=== PATIENT | male | born 1955 | race Caucasian/White ===

== ENCOUNTER → 2023-01-04 08:42 | Outpatient (BNVA) | payer OTHER, SELFPAY | PROVIDERS: Visit Provider Family Medicine | DX: E78.5 Hyperlipidemia, unspecified (principal); Z12.5 Encounter for screening for malignant neoplasm of prostate; R68.82 Decreased libido; I10 Essential (primary) hypertension | CPT/HCPCS: 80053; 80061; 82043; 84403; 85025; G0103 ==

== ENCOUNTER 2023-02-06 06:39 | Day surgery (SDC) | payer MEDICARE, SELFPAY ==
--- NOTE | 2023-02-06 06:43 | W.PM.OPSFHP ---
Same Day Surgery H&P Indication for Procedure/HPI DATE OF PROCEDURE: February 06, 2023 CHIEF COMPLAINT/INDICATIONFOR SURGICAL PROCEDURE: need for screening colonoscopy PREOP DIAGNOSIS: need for screening colonoscopy PLANNED PROCEDURE: Operation Date: 02/06/23 07:45 Proposed Procedures p Colonoscopy g0121,Z86.010(Not Applicable) - Osei Au MD Medications/Allergies* Home Medications Medication Instructions Recorded Confirmed Type aspirin 81 mg tablet,delayed 81 mg PO DAILY 10/03/22 02/02/23 History release carvedilol 12.5 mg tablet 12.5 mg PO BID 10/03/22 02/02/23 History allopurinol 100 mg tablet 100 mg PO DAILY 02/02/23 02/02/23 History Allergies/Adverse Reactions Allergy/AdvReac Type Severity Reaction Status Date / Time OXYCODONE Allergy Mild ADR-Itching Uncoded 02/02/23 12:06 Pertinent History/Comorbid Conditions* Medical History (Updated 01/22/23 @ 17:20 by Osei Au MD) Benign essential HTN Dyslipidemia History of colon polyps History of gout Surgical History (Updated 10/03/22 @ 14:42 by Lynette Duval DO) History of hip replacement Both - 2012, 2018 Family History (Updated 10/03/22 @ 14:22 by Lizzette Troy LPN) Father Grandfather Grandmother Mother Diabetes Grandmother Mother CAD (coronary artery disease) Mother Hyperlipidemia Mother Lung disease Grandfather Probable d/t coal mining Cancer Mother Hypertension Grandmother Mother Social History Smoking and tobacco/nicotine status: current some day tobacco/nicotine user smokeless tobacco Alcohol intake: current Alcohol intake frequency: holidays/special occasions only Pertinent Exam Findings alert, oriented x 3, clear to auscultation bilaterally and regular rate & rhythm Recommendations Surgery/Procedure today Coding Level of Care Code Acute Code for Chg Fwd Diagnoses
[2023-02-06 06:54] VITALS: BP 145/84; PULSE 59; RESP 18; TEMP 36.1; O2SAT 97; BMI 33.0
[2023-02-06] MEDS: sodium chloride 0.9% 1,000 ML 30 ML IV (07:06)
--- NOTE | 2023-02-06 07:10 | ANES.PREANE2 ---
Pre-Anesthetic Assessment Height/Weight: Height 1.78 m Weight 104.326 kg Temp Pulse Resp BP Pulse Ox O2 Del Method 97 F L 59 L 18 145/84 97 Room Air 02/06/23 06:54 02/06/23 06:54 02/06/23 06:54 02/06/23 06:54 02/06/23 06:54 02/06/23 06:54 Preop Diagnosis: need for screening colonoscopy Operation Date: 02/06/23 07:45 Proposed Procedures p Colonoscopy [id number],Z86.010(Not Applicable) - Osei Au MD Was Beta Solitario taken within 24 hours: Yes Was Clonidine taken within 24 hours: N/A Last intake: Intake Last Liquid Date 02/05/23 Last Liquid Time 21:00 Last Solid Date 02/04/23 Last Solid Time 16:00 Social No alcohol and No tobacco Exam alert, oriented x 3, clear to auscultation bilaterally and regular rate & rhythm Airway Submandibular: within normal limits Cervical ROM: within normal limits Mallampati: Class II History/ROS No significant history except as noted and No significant complaints Pulmonary None reported CV/HEM Hypertension None reported Hepatic None reported GI None reported Metabolic None reported Musc/skel None reported Neuropsych None reported Anesthetic Plan ASA status: 2 Anesthesia: Anesthesia Evaluation and MAC Risk of > 500 ml blood loss (7ml/kg in children): Yes, adequate IV access and fluids planned Medications/Allergies Home Medications Medication Instructions Recorded Confirmed Last Taken Type aspirin 81 mg tablet,delayed 81 mg PO DAILY 10/03/22 02/02/23 02/04/23 History release carvedilol 12.5 mg tablet 12.5 mg PO BID 10/03/22 02/02/23 02/02/23 History lisinopril 10 mg tablet 10 mg PO DAILY #90 tabs 10/03/22 02/02/23 02/04/23 Rx atorvastatin 40 mg tablet 40 mg PO DAILY #90 tabs 01/05/23 02/02/23 02/04/23 Rx allopurinol 100 mg tablet 100 mg PO DAILY 02/02/23 02/02/23 02/04/23 History Allergies Allergy/AdvReac Type Severity Reaction Status Date / Time OXYCODONE Allergy Mild ADR-Itching Uncoded 02/02/23 12:06 Current Medications Generic Name Dose Route Start Last Admin Trade Name Freq PRN Reason Stop Dose Admin Sodium Chloride 1,000 mls @ 30 mls/hr 02/06/23 07:00 02/06/23 07:06 Sodium Chloride 0.9% IV 30 mls/hr .Q24H ESTEBAN Administration PFSH Anesthesia Medical History Benign essential HTN Dyslipidemia History of colon polyps History of gout Surgical History History of hip replacement Both - 2012, 2018 Family History Grandmother Diabetes Hypertension Grandfather Lung disease Probable d/t coal mining Father No problems noted. Mother Cancer CAD (coronary artery disease) Hypertension Hyperlipidemia Diabetes Social History (Updated 01/22/23 @ 14:56 by Brittani Carter LPN) Smoking and tobacco/nicotine status: current some day tobacco/nicotine user smokeless tobacco Alcohol intake: current Alcohol intake frequency: holidays/special occasions only Data Anesthesia Cardiac Studies: No Data to Display
[2023-02-06 08:55] VITALS: BP 134/75; PULSE 70; RESP 14; TEMP 36.2; O2SAT 94
[2023-02-06 09:10] VITALS: BP 137/80; PULSE 62; RESP 16; O2SAT 96
--- NOTE | 2023-02-06 09:25 | ANE.PACU2 ---
Inpatient post-anesthesia follow up: Airway intact: Yes Vital signs: Temperature 97.2 F Pulse Rate 62 Respiratory Rate 16 Blood Pressure 137/80 Pulse Oximetry 96 Oxygen Delivery Me thod Room Air Oxygen Flow Rate Fraction of Inspir ed Oxygen Hydration adequate: Yes Nausea and vomiting: No Pain level: 1 Mental status: Baseline
== END 2023-02-06 09:27 | disposition home or self-care (01) ==
PROVIDERS: PCP Family Medicine; Visit Provider Surgery
PROC: 0DJD8ZZ Inspection of Lower Intestinal Tract, Via Natural or Artificial Opening Endoscopic (ICD-10-PCS; CPT 45378; principal; 2023-02-06 07:45)
DX: Z12.11 Encounter for screening for malignant neoplasm of colon (principal); D12.2 Benign neoplasm of ascending colon; D12.8 Benign neoplasm of rectum; I10 Essential (primary) hypertension; E78.5 Hyperlipidemia, unspecified; Z86.010 Personal history of colon polyps; F17.290 Nicotine dependence, other tobacco product, uncomplicated
CPT/HCPCS: 45380; 45385; 88305; J2704; J3010; J7030

== ENCOUNTER → 2023-03-05 13:03 | Outpatient (BNVA) | payer MEDICARE, SELFPAY | PROVIDERS: PCP Family Medicine; Visit Provider Surgery | DX: Z09 Encounter for follow-up examination after completed treatment for conditions other than malignant neoplasm (principal) | CPT/HCPCS: 99213 ==

== ENCOUNTER → 2023-07-03 11:37 | Outpatient (BNVA) | payer MEDICARE, SELFPAY | PROVIDERS: PCP Family Medicine; Visit Provider Family Medicine | DX: E78.5 Hyperlipidemia, unspecified (principal) | CPT/HCPCS: 80053 ==

== ENCOUNTER → 2023-10-24 08:42 | Outpatient (BNVA) | payer OTHER, SELFPAY | PROVIDERS: PCP Family Medicine | DX: I10 Essential (primary) hypertension (principal) | CPT/HCPCS: 80053; 80061; 85025; G0103 ==

== ENCOUNTER → 2024-04-21 08:13 | Outpatient (BNVA) | payer OTHER, SELFPAY | DX: R97.20 Elevated prostate specific antigen [PSA] (principal); I10 Essential (primary) hypertension; E78.5 Hyperlipidemia, unspecified | CPT/HCPCS: 80053; 80061; 84402; 84403 ==

== ENCOUNTER → 2024-04-28 07:47 | Outpatient (BNVA) | payer OTHER, SELFPAY | DX: R97.20 Elevated prostate specific antigen [PSA] (principal) | CPT/HCPCS: 84402 ==

== ENCOUNTER → 2024-12-23 08:35 | Outpatient (BNVA) | payer MEDICARE, SELFPAY | PROVIDERS: Visit Provider Nurse Practitioner Family | DX: D22.4 Melanocytic nevi of scalp and neck (principal); L57.8 Other skin changes due to chronic exposure to nonionizing radiation; L81.4 Other melanin hyperpigmentation; D22.5 Melanocytic nevi of trunk; L82.1 Other seborrheic keratosis; L82.0 Inflamed seborrheic keratosis; R58 Hemorrhage, not elsewhere classified; R20.8 Other disturbances of skin sensation; L53.8 Other specified erythematous conditions; L29.89 Other pruritus; Z78.9 Other specified health status; D48.5 Neoplasm of uncertain behavior of skin | CPT/HCPCS: 11102; 17000; 17110; 99203 ==

== ENCOUNTER → 2025-01-21 08:33 | Outpatient (BNVA) | payer MEDICARE, SELFPAY | PROVIDERS: Visit Provider Dermatology | DX: D22.5 Melanocytic nevi of trunk (principal); D48.5 Neoplasm of uncertain behavior of skin; L57.0 Actinic keratosis | CPT/HCPCS: 11402; 17000 ==